=== PATIENT | male | born 1950 | race Caucasian/White ===

== ENCOUNTER 2020-03-05 10:26 | Outpatient (REF) | payer MEDICARE, SELFPAY ==
[2020-03-05 11:24] LABS: MANUAL DIFF FLAG NO
[2020-03-05 11:33] LABS: Estimated Average Glucose 163 mg/dL; Hemoglobin A1c % 7.3 %
[2020-03-05 11:34] LABS: Basophils Absolute Auto 0.1 X10*3/uL (0.0-0.2); Basophils Percent Auto 0.9 % (0-2); Eosinophils Absolute Auto 0.2 X10*3/uL (0.0-0.4); Eosinophils Percent Auto 2.4 % (0-4); Hematocrit 46.1 % (42-52); Hemoglobin 15.7 g/dl (14.0-18.0); Imm Gran Abs Auto 0.02 X10*3/uL (0.00-0.03); Imm Gran Pct Auto 0.3 % (0.0-0.4); Lymphocytes Percent Auto 39.2 % (20-40); Mean Corpuscular HGB Conc 34.1 g/dl (31.0-36.0); Mean Corpuscular Hemoglobin 31.4 pg (27.0-33.0); Mean Corpuscular Volume 92.2 fL (80-98); Mean Platelet Volume 9.7 fL (9.4-12.4); Monocytes Absolute Auto 0.6 X10*3/uL (0.1-1.2); Monocytes Percent Auto 7.8 % (2-11); Neutrophils Absolute Auto 3.8 X10*3/uL (2.0-8.3); Neutrophils Percent Auto 49.4 % (45-73); Platelet Count 345 X10*3/uL (160-400); Red Cell Distribution Width 12.6 % (11.0-16.0); White Blood Count 7.6 X10*3/uL (4.8-10.8)
[2020-03-05 12:15] LABS: Alanine Aminotransferase 21 U/L (0-40); Albumin Level 4.6 g/dL (3.5-5.0); Alkaline Phosphatase 88 U/L (39-117); Anion Gap 18 (12-20); Aspartate Amino Transferase 16 U/L (5-37); Bilirubin Total 0.8 mg/dL (0.0-1.0); Blood Urea Nitrogen 17 mg/dL (9-16); Calcium 9.6 mg/dL (8.4-10.2); Carbon Dioxide 21 mmol/L (22-29); Chloride 103 mmol/L (96-108); Cholesterol 167 mg/dL; Estimated Glomerular Filt Rate > 60; Glucose Fasting 157 mg/dL (60-99); HDL Cholesterol 36 mg/dL; LDL Cholesterol Calculated 107 mg/dl; Sodium 138 mmol/L (135-145); Triglycerides 124 mg/dL
[2020-03-05 12:52] LABS: Prostate Specific Antigen 4.13 ng/mL (<0.05-4.0); Thyroid Stimulating Hormone 0.91 uIU/mL (0.32-4.0)
[2020-03-05 14:11] LABS: Glucose Urine UA >=1000 MG/DL (NEG); Leukocyte Esterase Urine NEG (NEG); Nitrite Urine NEG (NEG); PH 5.5 (5.0-8.0); Urine Blood NEG (NEG); Urine Ketones NEG (NEG); Urine Protein NEG (NEG-TRACE)
[2020-03-05 14:13] LABS: Appearance Urine CLEAR; Color Urine YELLOW
[2020-03-05 14:27] LABS: RBC Urine 0-2 /HPF (0); Squamous Epithelial Cell Urine TRACE /LPF; WBC Urine 0-2 /HPF (0-4)
[2020-03-05 14:45] LABS: Creatinine Urine 79.78 mg/dL; Microalbum/Creatinine Ratio Ur 7.5 ug/mg cr
== END 2020-03-05 10:27 | disposition home or self-care (01) ==
LOC: HO.HMGCLDS 10:26
PROVIDERS: PCP Internal Medicine; Visit Provider Internal Medicine
DX: I25.10 Atherosclerotic heart disease of native coronary artery without angina pectoris (principal); E11.9 Type 2 diabetes mellitus without complications; E78.00 Pure hypercholesterolemia, unspecified
CPT/HCPCS: 36415; 80053; 80061; 81001; 82043; 82306; 83036; 84153; 84443; 85025

== ENCOUNTER 2020-06-05 09:21 | Outpatient (REF) | payer MEDICARE, SELFPAY ==
[2020-06-05 11:31] LABS: Estimated Average Glucose 157 mg/dL; Hemoglobin A1c % 7.1 %
[2020-06-05 11:40] LABS: Alanine Aminotransferase 21 U/L (0-40); Albumin Level 4.6 g/dL (3.5-5.0); Alkaline Phosphatase 84 U/L (39-117); Anion Gap 16 (12-20); Aspartate Amino Transferase 16 U/L (5-37); Bilirubin Total 0.6 mg/dL (0.0-1.0); Blood Urea Nitrogen 17 mg/dL (9-16); Calcium 9.7 mg/dL (8.4-10.2); Carbon Dioxide 27 mmol/L (22-29); Chloride 103 mmol/L (96-108); Cholesterol 153 mg/dL; Estimated Glomerular Filt Rate > 60; Glucose Fasting 132 mg/dL (60-99); HDL Cholesterol 39 mg/dL; LDL Cholesterol Calculated 85 mg/dl; Potassium 4.6 mmol/L (3.3-5.1); Sodium 141 mmol/L (135-145); Total Protein 7.1 g/dL (6.5-8.0); Triglycerides 149 mg/dL
== END 2020-06-05 09:22 | disposition home or self-care (01) ==
LOC: HO.HMGCLDS 09:21
PROVIDERS: PCP Internal Medicine; Visit Provider Internal Medicine
DX: Z00.00 Encounter for general adult medical examination without abnormal findings (principal); E11.9 Type 2 diabetes mellitus without complications; I25.10 Atherosclerotic heart disease of native coronary artery without angina pectoris; E78.00 Pure hypercholesterolemia, unspecified; R97.20 Elevated prostate specific antigen [PSA]; Z12.5 Encounter for screening for malignant neoplasm of prostate
CPT/HCPCS: 36415; 80053; 80061; 83036; 84153

== ENCOUNTER 2021-11-25 08:59 | Outpatient (REF) | payer MEDICARE, SELFPAY ==
[2021-11-25 11:21] LABS: Appearance Urine CLEAR; Color Urine YELLOW; Glucose Urine UA >=1000 MG/DL (NEG); Leukocyte Esterase Urine NEG (NEG); Nitrite Urine NEG (NEG); Specific Gravity - Urine <= 1.005 (1.005-1.025); Urine Blood NEG (NEG); Urine Ketones NEG (NEG); Urine Protein NEG (NEG-TRACE)
[2021-11-25 11:24] LABS: MANUAL DIFF FLAG NO
[2021-11-25 11:41] LABS: Estimated Average Glucose 163 mg/dL; Hemoglobin A1c % 7.3 %
[2021-11-25 11:45] LABS: Basophils Absolute Auto 0.1 X10*3/uL (0.0-0.2); Basophils Percent Auto 1.1 % (0-2); Eosinophils Absolute Auto 0.2 X10*3/uL (0.0-0.4); Eosinophils Percent Auto 2.8 % (0-4); Hematocrit 45.6 % (42.0-52.0); Hemoglobin 15.4 g/dl (14.0-18.0); Imm Gran Abs Auto 0.01 X10*3/uL (0.00-0.03); Imm Gran Pct Auto 0.1 % (0.0-0.4); Lymphocytes Absolute Auto 3.7 X10*3/uL (1.2-4.9); Lymphocytes Percent Auto 45.3 % (20-40); Mean Corpuscular HGB Conc 33.8 g/dl (31.0-36.0); Mean Corpuscular Hemoglobin 31.2 pg (27.0-33.0); Mean Corpuscular Volume 92.5 fL (80.0-98.0); Mean Platelet Volume 9.8 fL (9.4-12.4); Monocytes Absolute Auto 0.7 X10*3/uL (0.1-1.2); Monocytes Percent Auto 8.5 % (2-11); Neutrophils Absolute Auto 3.4 x10*3/uL (2.0-8.3); Neutrophils Percent Auto 42.2 % (45-73); Platelet Count 319 X10*3/uL (160-400); Red Blood Count 4.93 X10*6/uL (4.60-5.80); White Blood Count 8.1 X10*3/uL (4.8-10.8)
[2021-11-25 11:46] LABS: RBC Urine 0 /HPF (0); WBC Urine 0 /HPF (0-4)
[2021-11-25 12:11] LABS: PSA,Total (Free>4and<10) 3.56 ng/mL (0.00-4.00); Thyroid Stimulating Hormone 1.48 uIU/mL (0.32-4.0); Vitamin D 25-OH Total 36.3 ng/mL (>30)
[2021-11-25 12:19] LABS: Alanine Aminotransferase 18 U/L (0-40); Albumin Level 4.5 g/dL (3.5-5.0); Alkaline Phosphatase 82 U/L (39-117); Anion Gap 17 (12-20); Aspartate Amino Transferase 14 U/L (5-37); Bilirubin Total 0.7 mg/dL (0.0-1.0); Blood Urea Nitrogen 15 mg/dL (9-16); Calcium 9.8 mg/dL (8.4-10.2); Carbon Dioxide 23 mmol/L (22-29); Chloride 105 mmol/L (96-108); Cholesterol 166 mg/dL; Estimated Glomerular Filt Rate 60; Glucose Fasting 165 mg/dL (60-99); HDL Cholesterol 40 mg/dL; LDL Cholesterol Calculated 104 mg/dl; Sodium 141 mmol/L (135-145); Total Protein 6.8 g/dL (6.5-8.0); Triglycerides 112 mg/dL
[2021-11-25 12:20] LABS: Creatinine Urine 71.55 mg/dL; Microalbum/Creatinine Ratio Ur 6.9 ug/mg cr
== END 2021-11-25 09:00 | disposition home or self-care (01) ==
LOC: HO.HMGCLDS 08:59
PROVIDERS: PCP Internal Medicine; Visit Provider Internal Medicine
DX: Z12.5 Encounter for screening for malignant neoplasm of prostate (principal); E11.9 Type 2 diabetes mellitus without complications; I25.10 Atherosclerotic heart disease of native coronary artery without angina pectoris; E78.00 Pure hypercholesterolemia, unspecified
CPT/HCPCS: 36415; 80053; 80061; 81001; 82043; 82306; 83036; 84153; 84443; 85025

== ENCOUNTER 2022-02-19 09:34 | Outpatient (REF) | payer MEDICARE, SELFPAY ==
[2022-02-19 11:34] LABS: Estimated Average Glucose 160 mg/dL; Hemoglobin A1c % 7.2 %
[2022-02-19 11:40] LABS: Alanine Aminotransferase 23 U/L (0-40); Albumin Level 4.5 g/dL (3.5-5.0); Alkaline Phosphatase 89 U/L (39-117); Anion Gap 18 (12-20); Aspartate Amino Transferase 17 U/L (5-37); Bilirubin Total 0.6 mg/dL (0.0-1.0); Blood Urea Nitrogen 13 mg/dL (9-16); Carbon Dioxide 25 mmol/L (22-29); Chloride 103 mmol/L (96-108); Cholesterol 130 mg/dL; Estimated Glomerular Filt Rate 59; Glucose Fasting 168 mg/dL (60-99); HDL Cholesterol 39 mg/dL; LDL Cholesterol Calculated 72 mg/dl; Potassium 4.5 mmol/L (3.3-5.1); Sodium 141 mmol/L (135-145); Total Protein 6.8 g/dL (6.5-8.0); Triglycerides 97 mg/dL
== END 2022-02-19 09:35 | disposition home or self-care (01) ==
LOC: HO.HMGCLDS 09:34
PROVIDERS: PCP Internal Medicine; Visit Provider Internal Medicine
DX: E11.9 Type 2 diabetes mellitus without complications (principal); E78.00 Pure hypercholesterolemia, unspecified
CPT/HCPCS: 36415; 80053; 80061; 83036

== ENCOUNTER 2023-02-03 08:35 | Outpatient (REF) | payer MEDICARE, SELFPAY | END 2023-02-03 08:36 | disposition home or self-care (01) | LOC: HO.HMGCLDS 08:35 | PROVIDERS: PCP Internal Medicine; Visit Provider Internal Medicine | DX: E11.9 Type 2 diabetes mellitus without complications (principal); I25.10 Atherosclerotic heart disease of native coronary artery without angina pectoris; E78.00 Pure hypercholesterolemia, unspecified | CPT/HCPCS: 36415; 80053; 80061; 83036; 85025 ==

== ENCOUNTER 2024-02-01 09:26 | Outpatient (REF) | payer MEDICARE, SELFPAY ==
[2024-02-01 09:56] LABS: MANUAL DIFF FLAG NO
[2024-02-01 10:14] LABS: Basophils Absolute Auto 0.1 X10*3/uL (0.0-0.2); Basophils Percent Auto 1.1 % (0-2); Eosinophils Absolute Auto 0.2 X10*3/uL (0.0-0.4); Eosinophils Percent Auto 2.4 % (0-4); Hemoglobin 15.8 g/dl (14.0-18.0); Imm Gran Abs Auto 0.03 X10*3/uL (0.00-0.03); Imm Gran Pct Auto 0.3 % (0.0-0.4); Lymphocytes Absolute Auto 3.5 X10*3/uL (1.2-4.9); Lymphocytes Percent Auto 36.8 % (20-40); Mean Corpuscular HGB Conc 34.3 g/dl (31.0-36.0); Mean Corpuscular Hemoglobin 31.9 pg (27.0-33.0); Mean Corpuscular Volume 92.7 fL (80.0-98.0); Monocytes Absolute Auto 0.9 X10*3/uL (0.1-1.2); Monocytes Percent Auto 9.1 % (2-11); Neutrophils Absolute Auto 4.8 x10*3/uL (2.0-8.3); Neutrophils Percent Auto 50.3 % (45-73); Platelet Count 322 X10*3/uL (160-400); Red Blood Count 4.96 X10*6/uL (4.60-5.80); Red Cell Distribution Width 12.9 % (11.0-16.0); White Blood Count 9.5 X10*3/uL (4.8-10.8)
[2024-02-01 10:52] LABS: Estimated Average Glucose 171 mg/dL; Hemoglobin A1C 234.9356 umol/L; Hemoglobin A1c % 7.6 % (<6.0); Total Hemoglobin (HGBA1C) 3964.1156 umol/L
[2024-02-01 10:55] LABS: Alanine Aminotransferase 24 U/L (0-40); Albumin Level 4.5 g/dL (3.5-5.0); Alkaline Phosphatase 84 U/L (39-117); Anion Gap 14 (12-20); Aspartate Amino Transferase 16 U/L (5-37); Bilirubin Total 0.7 mg/dL (0.0-1.0); Blood Urea Nitrogen 15 mg/dL (9-16); Calcium 9.9 mg/dL (8.4-10.2); Carbon Dioxide 26 mmol/L (22-29); Chloride 105 mmol/L (96-108); Cholesterol 122 mg/dL (<200); Estimated Glomerular Filt Rate > 60; Glucose Fasting 146 mg/dL (60-99); HDL Cholesterol 42 mg/dL (>40); LDL Cholesterol Calculated 65 mg/dL (<100); Potassium 4.3 mmol/L (3.3-5.1); Sodium 141 mmol/L (135-145); Total Protein 7.1 g/dL (6.5-8.0); Triglycerides 78 mg/dL (<150)
[2024-02-01 11:13] LABS: PSA,Total (Free>4and<10) 4.58 ng/mL (0.00-4.00)
[2024-02-01 11:15] LABS: Thyroid Stimulating Hormone 1.14 uIU/mL (0.32-4.0); Vitamin D 25-OH Total 44.8 ng/mL (>30)
[2024-02-01 11:23] LABS: Microalbum/Creatinine Ratio Ur 22.4 ug/mg cr (<30)
[2024-02-02 11:18] LABS: Free Prostate Spec Ag 0.9 ng/mL; Percent Free Prostate Spec Ag 20 % (calc) (>25); Prostate Specific Ag Total 4.6 ng/mL (< OR = 4.0)
== END 2024-02-01 09:27 | disposition home or self-care (01) ==
LOC: HO.LAB 09:26
PROVIDERS: PCP Internal Medicine; Visit Provider Internal Medicine
DX: Z00.00 Encounter for general adult medical examination without abnormal findings (principal); I25.10 Atherosclerotic heart disease of native coronary artery without angina pectoris; E78.00 Pure hypercholesterolemia, unspecified; E66.09 Other obesity due to excess calories; Z12.5 Encounter for screening for malignant neoplasm of prostate; Z13.1 Encounter for screening for diabetes mellitus
CPT/HCPCS: 36415; 80053; 80061; 82043; 82306; 82570; 83036; 84153; 84154; 84443; 85025

== ENCOUNTER 2024-06-20 12:55 | Outpatient (AMB) | payer MEDICARE, SELFPAY ==
--- NOTE | 2024-06-20 13:02 | MHC.PC.OV ---
Vital Signs 06/20/24 13:17 Height 5 ft 4.75 in Weight 187 lb BMI 31.4 BP 102/52 L Blood Pressure Location Rt brachial Pulse 87 Pulse Source Pulse Oximeter Temp 97.2 F Pulse Oximetry (%) 97 Intake Visit Reasons: follow up Intake Note: no other issues Allergies No Known Allergies [No Known Allergies*] Allergy (Verified 06/20/24 13:37) Medication List - Last Reconciled 06/20/24 by Sally Smith PA-C aspirin (Adult Aspirin Regimen) 81 mg PO DAILY atorvastatin 80 mg PO DAILY blood sugar diagnostic (FreeStyle Test strips) As directed dapagliflozin propanediol (Farxiga) 10 mg PO DAILY dulaglutide (Trulicity) 1.5 mg subcut QWEEK glipizide 5 mg PO DAILY lisinopril 5 mg PO DAILY metformin ER 750 mg PO DAILY metoprolol tartrate 50 mg PO BID [facility] Medical History (Updated 06/20/24 @ 13:45 by Sally Smith PA-C) Obesity (BMI 30.0-34.9) Elevated PSA Diabetes type 2 Mild hypercholesterolemia History of myocardial infarction Coronary artery disease Surgical History History of colonoscopy (~02/03/19) Physical exam (Primary Care) Vital Signs: Last Vital Signs Temp 97.2 F 06/20/24 13:17 Pulse 87 06/20/24 13:17 BP 102/52 L 06/20/24 13:17 Pulse Ox 97 06/20/24 13:17 Care Plan Goal for BP management: 130/80 BMI result Body Mass Index 31.4 BMI Assessment/Plan discussion: High BMI High, discussed plan: lifestyle, weight reduction, dietary, physical activity and alcohol moderation Coding Level of Care Code New Pt Level 4 (60015) Complex EM visit Add On G2211 Diagnoses Mild hypercholesterolemia E78.00 Coronary artery disease I25.10 Diabetes type 2 E11.9 Elevated PSA R97.20 Obesity (BMI 30.0-34.9) E66.811 Assessment & Plan Assessment & Plan (1) Mild hypercholesterolemia: Code(s): E78.00 - Pure hypercholesterolemia, unspecified Category: Medical Plan: Patient to continue atorvastatin 80 mg daily. LDL goal <70. Last LDL was on 02/01/2024 which was 65. At goal. Condition is chronic and stable continue current regimen. (2) Coronary artery disease: Code(s): I25.10 - Atherosclerotic heart disease of [place] coronary artery without angina pectoris Category: Medical Plan: Patient is currently on baby aspirin 81 mg daily, atorvastatin 81 mg daily, lisinopril 5 mg daily, metoprolol 50 mg p.o. b.i.d.. Blood pressure goal 130/80. Condition is chronic consider will continue to monitor.. (3) Diabetes type 2: Code(s): E11.9 - Type 2 diabetes mellitus without complications Category: Medical Plan: A1c level Goal <7.0. Last A1c was 7.6 on 02/01/2024. Patient reports that he is currently being seen by Laureano Niño PA-C at [facility] although is requesting for us to take over his diabetes care due to the travel to [facility] makes it difficult for the patient he reports. Will reassess labs including A1c and urine. Patient to continue Farxiga 10 mg daily, glipizide 5 mg daily, metformin extended release 750 mg daily, Trulicity 1.5 mg subQ weekly. Condition is chronic and stable continue to monitor. (4) Elevated PSA: Code(s): R97.20 - Elevated prostate specific antigen [PSA] Category: Medical Plan: Patient's PSA was elevated on 03/05/2020 and again on 02/01/2024. Patient reports that he was not referred to Urology due to he was dealing with his 's comorbidities. Although at this time he is agreeable to being seen by Urology. Will place referral to Urology at this time. Condition is chronic and stable continue to monitor. (5) Obesity (BMI 30.0-34.9): Code(s): E66.811 - Obesity, class 1 Category: Medical Plan: Patient to improve diet and exercise regimen. Condition is chronic and stable continue to monitor. Plan Plan - Refer patient to urology for further evaluation of elevated PSA and potential screening for prostate cancer. - Recommend fasting blood work including CBC, CMP, CRP, Hemoglobin A1c, urine analysis, magnesium levels, liver enzyme panel, lipid profile, repeat PSA, TSH, vitamin B1, , folate, and vitamin D levels to be performed prior to the next follow-up. - Transition management of Type 2 Diabetes Mellitus to primary care with Dr. Jason for patient convenience. - Continue current medications: Atorvastatin, Farxiga, Trulicity, Glipizide, Lisinopril, Metformin, and Metoprolol. - Review blood pressure medication if hypotension symptoms occur given current readings. - Request re-evaluation of cholesterol and a1c levels during next visit. - Prescribe freestyle glucose test strips for home blood glucose monitoring. - Schedule next follow-up appointment in six months, with anticipation of lab results review prior. Orders: Orders Complete Blood Count Auto Diff Today Z00.00 - Encounter for general adult medical examination without abnormal findings Comprehensive [place]. Panel Fast Today Z00.00 - Encounter for general adult medical examination without abnormal findings Hemoglobin A1c Today Z00.00 - Encounter for general adult medical examination without abnormal findings Liver Panel Today Z00.00 - Encounter for general adult medical examination without abnormal findings Lipid Panel Today Z00.00 - Encounter for general adult medical examination without abnormal findings PSA,Total (Free>4and<10) Today Z00.00 - Encounter for general adult medical examination without abnormal findings C Reactive Protein Today Z00.00 - Encounter for general adult medical examination without abnormal findings Microalbumin, Random (w Creat) Today E11.9 - Type 2 diabetes mellitus without complications Magnesium Today Z00.00 - Encounter for general adult medical examination without abnormal findings TSH reflex Free T4 Today Z00.00 - Encounter for general adult medical examination without abnormal findings Vitamin B1 Today Z00.00 - Encounter for general adult medical examination without abnormal findings Vitamin B12 and Folate Today Z00.00 - Encounter for general adult medical examination without abnormal findings Vitamin D 25-OH Total Today Z00.00 - Encounter for general adult medical examination without abnormal findings Medications: New blood sugar diagnostic (FreeStyle Test strips) As directed 100 ea 3RF Patient Instructions: Patient Instructions - Arrange a urology appointment to evaluate the elevated PSA level. - Undergo fasting blood tests as ordered before the next appointment. - Continue current medications as prescribed. - Monitor your blood sugar at home using prescribed freestyle test strips. - Report any dizziness, chest pain, or abnormal symptoms promptly. - Maintain a heart-healthy diet and manage diabetes with regular check-ins. - Return to our clinic in six months for a follow-up or sooner if significant changes occur in symptoms or health status. Scribe Plan - Not visible on output: History of Present Illness The patient is a 73-year-old male presenting with concerns about managing his chronic medical conditions, particularly Type 2 Diabetes Mellitus, as well as addressing an elevated Prostate-Specific Antigen (PSA) level. The patient has Type 2 Diabetes Mellitus and recently had his Hemoglobin A1c recorded at 7.6%, suggesting an upward trend. He has a history of myocardial infarction in 1995, which led to a subsequent coronary artery bypass grafting. He has been managed on various medications including atorvastatin started post-myocardial infarction for hyperlipidemia, resulting in currently low cholesterol levels. His triglycerides are well controlled at 78 mg/dL, total cholesterol is at 122 mg/dL, LDL is at 65 mg/dL, and HDL is at 42 mg/dL. These values been achieved through diligent medication adherence and lifestyle adjustments. The PSA has been noted as elevated, and there is a need for reevaluation by urology to rule out prostate cancer, although he has not followed up with a urologist recently. The patient previously consulted Dr. Joe and Dr. Tubbs for diet management related to diabetes. Dr. Tubbs has retired, hence the discussion around transitioning the management back to primary care to improve convenience as the patient has found the travel requirements burdensome. His blood pressure noted to be 105/70 mmHg today is controlled, although it is lower than the usual value of 110 mmHg. Social History - , lives with , no children at home. - Reports not driving frequently due to discomfort with current driving conditions. - No reported substance use such as tobacco. - Manages own medications and minor household activities without assistance. - No formal home health aides or in-home health services. Review of Systems - Cardiovascular: Denies chest pain, denies leg swelling. - Gastrointestinal: Denies black or bloody stools. - Neurologic: Denies dizziness, denies memory difficulties. - Genitourinary: Reports normal urination. - Respiratory: Denies shortness of breath. Physical Exam Appearance: Alert. Oriented X3. No acute distress. Head: Normal external exam. Normocephalic. Atraumatic. Eyes: Pupils are equal, round, and reactive to light. Extraocular movements intact. Conjunctiva and sclera normal. Eyelids normal. Ears: External auditory canal normal. Tympanic membranes normal. Throat: Pharynx normal. Uvula midline. Moist mucous membranes. Neck: Normal inspection. Neck supple. Full range of motion. No adenopathy. Thyroid Normal. No meningeal signs. No neck mass noted. Cardiovascular: Normal heart rate and rhythm. Heart sound normal. No murmurs noted. Pulses normal throughout. Respiratory: No respiratory distress. Painless inspiration. Breath sounds normal. No wheezes/rales/rhonchi noted. Chest nontender. No accessory muscle usage noted or decreased air movement noted. Abdomen: Soft and nontender. Bowel sounds normal in all 4 quadrants. No distention noted. No organomegaly noted. No visible injury noted. Back: No costovertebral angle tenderness. Full range of motion noted. Skin: Skin warm and dry. Normal skin color. Normal skin turgor. No rashes/lesions/lacerations noted. Extremities: No lower extremity edema. Extremities exhibit normal range of motion. Extremities nontender. Neuro: Oriented X 3. No motor deficit. No sensory deficit. Reflexes normal. Results - Labs: Hemoglobin A1c 7.6%, Triglycerides 78 mg/dL, Cholesterol 122 mg/dL, LDL 65 mg/dL, HDL 42 mg/dL. - PSA: Elevated (exact value above 4 ng/mL not specified). Plan - Refer patient to urology for further evaluation of elevated PSA and potential screening for prostate cancer. - Recommend fasting blood work including CBC, CMP, CRP, Hemoglobin A1c, urine analysis, magnesium levels, liver enzyme panel, lipid profile, repeat PSA, TSH, vitamin B1, , folate, and vitamin D levels to be performed prior to the next follow-up. - Transition management of Type 2 Diabetes Mellitus to primary care with Dr. Perez for patient convenience. - Continue current medications: Atorvastatin, Farxiga, Trulicity, Glipizide, Lisinopril, Metformin, and Metoprolol. - Review blood pressure medication if hypotension symptoms occur given current readings. - Request re-evaluation of cholesterol levels during next visit. - Prescribe freestyle glucose test strips for home blood glucose monitoring. - Schedule next follow-up appointment in six months, with anticipation of lab results review prior. Patient was informed and verbally consented to the use of an ambient scribe for clinic note documentation during this visit. Discussion Notes During the visit, I discussed at length the importance of managing his Type 2 Diabetes Mellitus, coronary artery disease, and hyperlipidemia. Considering the longstanding history of Type 2 Diabetes Mellitus and recent A1c levels, it was agreed that transitioning care to a more local resource would aid in better diabetes management. We reviewed the elevated PSA, and I stressed the necessity of a follow-up with urology to rule out prostate malignancy. Laboratory evaluation and blood work were organized to occur in advance of the next visit at the six-month interval. I provided reassurance regarding his current cardiovascular status, noting favorable cholesterol levels and stable blood pressure, although we will monitor the latter closely. The patient is now prescribed the recommended glucose test strips to ensure continuous monitoring at home. I affirmed the plan for continued primary care management cultivation, led by myself and Dr. Perez, to optimize his healthcare journey. I ensured the patient understood the importance of follow-up should any symptoms or abnormities arise prior to his scheduled appointment. Patient Instructions - Arrange a urology appointment to evaluate the elevated PSA level. - Undergo fasting blood tests as ordered before the next appointment. - Continue current medications as prescribed. - Monitor your blood sugar at home using prescribed freestyle test strips. - Report any dizziness, chest pain, or abnormal symptoms promptly. - Maintain a heart-healthy diet and manage diabetes with regular check-ins. - Return to our clinic in six months for a follow-up or sooner if significant changes occur in symptoms or health status.
[2024-06-20 13:17] VITALS: BP 102/52; PULSE 87; TEMP 36.2; O2SAT 97; BMI 31.4
--- OUTSIDE RECORDS SUMMARY | 2024-06-20 15:44 | XMS_ITS | Continuity of Care Document ---
Author Organization [facility] [address] [place] [address] Phone [phone] Care Team Providers Care Discharge Rn Name Role Phone Jose Joe M.D. Care Team Information Recei hallie [phone] Problems Active Problems Provider Date Type 2 diabetes mellitus Handy Theodore M.D. O nset: 12/01/2021 Asymptomatic coronary heart disease Handy montanez M.D. Onset: 12/01/2021 Essential hypertension Handy Theodore M.D. Ons et: 10/12/2022 Hypercholesterolemia Handy Theodore M.D. Onset : 10/12/2022 Social History Type Date Description Comments Sex Unknown Lives With Spouse ETOH Use Rarely consumes alcohol Tobacco Use Start: Unknown End: Unknown Patient is a former smoker Quit 1995 Smoking Status Reviewed: 02/04/24 Patient is a former smoker Quit 1995 Allergies and adverse reactions Description No Known Drug Allergies Medications Active Medications SIG Qnty Indications Order ing Provider Date Trulicity1.5mg/0.5M L Solution Auto-Inject Inject 1 Syringe Subcutaneously (1.5MG) Every Week as Directed. 6units E11.9 Ara Carolina M.D. 02/04/2024 Trulicity0.75mg/0.5 ML Solution Pen-Inject Inject 0.75 sc weekly 12ml E11.9 Handy Theodore M.D. 08/20/2023 Glipizide ER5mg Tablets ER 24HR one a day for sugarin am 90tabs Handy Theodore M.D. 08/20/2023 Metformin HCL [id number] Tablets ER 24HR 1 by mouth Am Handy Theodore M.D. 10/12/2022 Xcrhl87ht Tablets 1 by mouth every day 90tabs Handy Theodore M.D. 10/12/2022 Iwejbjj48qc Tablets Take One Tablet By Mouth Every Day 90tabs Ara Carolina M.D. 05/08/2022 Uqxlanieqy9cp Tablets 1 by mouth every day Handy Theodore M.D. 12/01/2021 Metoprolol Dwbsnbca28me Tablets 2 tab by mouth twice a day Handy Theodore M.D. 12/01/2021 Aspirin Adult Low Zoeo63xz Tablets DR 1 by mouth every day Handy Theodore M.D. 12/01/2021 Atorvastatin Uxcsffs66jz Tablets 1 by mouth every day Handy Theodore M.D. 12/01/2021 Vital Signs Date Vital Result Comment 02/04/2024 11:04am BP Systolic 120 mmHg BP Diastolic 70 mmHg Heart Rate 92 /min Height 66 inches 5'6 Weight 191.12 lb BMI (Body Mass Index) 30.8 kg/m2 Results Test Acquired Date Facility Test Result H/L [place] Laboratory test finding 02/04/2024 Inhouse Glucose Fingerstick 213 Laboratory test finding 08/20/2023 Inhouse Glucose Fingerstick 186 Hemoglobin A1c 7.7% Laboratory test finding 01/14/2023 Inhouse Glucose Fingerstick 116 Hemoglobin A1c 7.5% Laboratory test finding 10/12/2022 Inhouse Glucose Fingerstick 194 Hemoglobin A1c 8.5% Medical Devices Description No Information Available Encounters Type Date Location Provider Dx Diagnosis Office Visit 02/04/2024 10:45a Main Office ANANTH Pete E11.9 Type 2 diabet es mellitus without complications E78.00 Pure hypercholestero lemia, unspecified I10 Essential (primary) hypertension I25.89 Other forms of chron ic ischemic heart disease Assessments Date Code Description Provider 02/04/2024 E11.9 Type 2 diabetes mellitus wit hout complications ANANTH Pete 02/04/2024 E78.00 Hypercholesterolemia ANANTH Pete 02/04/2024 I10 Essential hypertension ANANTH Cordero 02/04/2024 I25.89 Asymptomatic coronary heart disease ANANTH Pete Plan of Treatment 08/20/2023 - Handy Theodore M.D.* E11.9 Type 2 diabetes mellitus without complications * I10 Essential hypertension * E78.00 Hypercholesterolemia * I25.89 Asymptomatic coronary heart disease* New Medication:* Trulicity 0.75 mg/0.5ML Functional Status Description No Information Available Mental Status Description No Information Available Referrals Description No Information Available
--- OUTSIDE RECORDS SUMMARY | 2024-06-20 15:44 | XMS_ITS ---
[facility] [address] [place], [place] [id number] Care Team Providers Care Chute Builder Name Role Phone Jose Joe Primary Care Provider [phone] REASON FOR VISIT Message to self Encounters Encounter Location Date Provider Diagnosis Jose Joe DO, [address] [id number] 03/19/2024 Jose Joe PLAN OF TREATMENT No Information
--- OUTSIDE RECORDS SUMMARY | 2024-06-20 15:44 | XMS_ITS ---
Author Organization Jose Joe DO [facility] Address [address] [place], [place] [id number] Care Team Providers Care Sawmilling Operator Name Role Phone TatyanaJose camarillo Primary Care Provider REASON FOR VISIT New Refill Request MEDICATIONS Medication SIG (Take, Route, Frequency, Duration) Notes Start Date End Date Status FreeStyle Test - Use as directed In V itro Once a day for 90 days DM II E11.9 04/14/2018 Active FreeStyle Lancets - Use as directed fing er stick Once a day for 90 days DM II E11.9 05/04/2016 Active Encounters Encounter Location Date Provider Diagnosis Jose Joe DO, [address] [phone] 03/30/2024 Jose Joe Type 2 diabetes mellitus without complications E11.9 ASSESSMENTS Encounter Date Diagnosis Assessment Notes Treatment Notes Treatment Clinical Notes 03/30/2024 Type 2 diabetes mellitus without complications (ICD-10 - E11.9) PLAN OF TREATMENT Medication Medication Name Sig Start Date Stop Date Notes FreeStyle Test - Use as directed In V itro Once a day for 90 days 04/14/2018 DM II E11.9 FreeStyle Lancets - Use as directed fing er stick Once a day for 90 days 05/04/2016 DM II E11.9
--- OUTSIDE RECORDS SUMMARY | 2024-06-20 15:44 | XMS_ITS ---
Author Organization Jose Joe DO, FACP Address [address] [place], [place] [phone] Care Team Providers Care Sql Report Developer Name Role Phone Jose Joe Primary Care Provider REASON FOR VISIT 6 month f/u Encounters Encounter Location Date Provider Diagnosis JO Huertas DO[address] [id number] 05/17/2024 Jose Joe PLAN OF TREATMENT No Information
== END 2024-06-20 13:40 | disposition home or self-care (01) ==
LOC: HO.HMCSH 12:55
PROVIDERS: PCP Internal Medicine; Visit Provider Physician Assistant Medical
DX: E78.00 Pure hypercholesterolemia, unspecified (principal); I25.10 Atherosclerotic heart disease of native coronary artery without angina pectoris; E11.9 Type 2 diabetes mellitus without complications; R97.20 Elevated prostate specific antigen [PSA]; E66.811 Obesity, class 1

== ENCOUNTER → 2024-06-20 12:55 | Outpatient (BNVA) | payer MEDICARE, SELFPAY | PROVIDERS: PCP Internal Medicine; Visit Provider Physician Assistant Medical | DX: E78.00 Pure hypercholesterolemia, unspecified (principal); I25.10 Atherosclerotic heart disease of native coronary artery without angina pectoris; E11.9 Type 2 diabetes mellitus without complications; R97.20 Elevated prostate specific antigen [PSA]; E66.811 Obesity, class 1 | CPT/HCPCS: 99202 ==

== ENCOUNTER 2024-12-15 08:53 | Outpatient (REF) | payer MEDICARE, SELFPAY ==
[2024-12-15 10:10] LABS: MANUAL DIFF FLAG NO
[2024-12-15 10:17] LABS: Hematocrit 44.6 % (42.0-52.0); Hemoglobin 15.0 g/dl (14.0-18.0); Imm Gran Abs Auto 0.02 X10*3/uL (0.00-0.03); Imm Gran Pct Auto 0.2 % (0.0-0.4); Lymphocytes Absolute Auto 3.7 X10*3/uL (1.2-4.9); Mean Corpuscular HGB Conc 33.6 g/dl (31.0-36.0); Mean Corpuscular Hemoglobin 31.6 pg (27.0-33.0); Mean Corpuscular Volume 94.1 fL (80.0-98.0); NRBC Abs Auto 0.000 X10*3/uL (0.0-0.012); NRBC Pct Auto 0.0 /100WBC (0.0-0.2); Platelet Count 308 X10*3/uL (160-400); Red Blood Count 4.74 X10*6/uL (4.60-5.80); White Blood Count 8.3 X10*3/uL (4.8-10.8)
[2024-12-15 10:32] LABS: Hemoglobin A1C 235.6962 umol/L; Total Hemoglobin (HGBA1C) 3887.4062 umol/L
[2024-12-15 11:09] LABS: Alanine Aminotransferase 29 U/L (0-40); Albumin Level 4.5 g/dL (3.5-5.0); Alkaline Phosphatase 86 U/L (39-117); Anion Gap 15 (12-20); Aspartate Amino Transferase 25 U/L (5-37); Blood Urea Nitrogen 18 mg/dL (9-16); Calcium 9.6 mg/dL (8.4-10.2); Carbon Dioxide 23 mmol/L (22-29); Chloride 106 mmol/L (96-108); Cholesterol 133 mg/dL (<200); Estimated Glomerular Filt Rate > 60; HDL Cholesterol 38 mg/dL (>40); Magnesium 2.1 mg/dL (1.6-2.6); Potassium 4.0 mmol/L (3.3-5.1); Sodium 140 mmol/L (135-145); Total Protein 6.8 g/dL (6.5-8.0); Triglycerides 123 mg/dL (<150)
[2024-12-15 11:18] LABS: PSA,Total (Free>4and<10) 5.17 ng/mL (0.00-4.00)
[2024-12-15 11:26] LABS: Microalbum/Creatinine Ratio Ur 12.4 ug/mg cr (<30)
[2024-12-15 11:43] LABS: Folate 10.9 ng/mL (> or = 4.0); Vitamin B12 299 pg/mL (200-900)
[2024-12-18 12:59] LABS: Free Prostate Spec Ag 0.8 ng/mL; Percent Free Prostate Spec Ag 20 % (calc) (>25)
== END 2024-12-15 08:54 | disposition home or self-care (01) ==
LOC: HO.HMGCLDS 08:53
PROVIDERS: PCP Internal Medicine; Visit Provider Physician Assistant Medical
DX: Z00.00 Encounter for general adult medical examination without abnormal findings (principal); E11.9 Type 2 diabetes mellitus without complications; Z12.5 Encounter for screening for malignant neoplasm of prostate
CPT/HCPCS: 36415; 80053; 80061; 80076; 82043; 82248; 82306; 82570; 82607; 82746; 83036; 83735; 84153; 84154; 84425; 84443; 85025; 86140

== ENCOUNTER 2024-12-19 13:05 | Outpatient (AMB) | payer MEDICARE, SELFPAY ==
--- NOTE | 2024-12-19 13:01 | A.OFFPC_ITS ---
Vital Signs 12/19/24 13:02 Height 5 ft 4.75 in Weight 189 lb 4 oz BMI 31.7 BP 110/62 Blood Pressure Location Rt femoral Position Sitting Respiration 16 Pulse 87 Pulse Source Pulse Oximeter Temp 97.3 F Temp Source Temporal Artery Scan Pulse Oximetry (%) 97 Oxygen Delivery Method Room Air Intake Visit Reasons: 6 month f/u Intake Note: no other issues Heavy Coil Winder Required: No Accompanied by: Self / Same As Patient Allergies No Known Allergies (No Known Allergies*) Allergy (Verified 12/19/24 13:28) Medication List - Last Reconciled 12/19/24 by Sally Smith PA-C aspirin (Adult Aspirin Regimen) 81 mg PO DAILY atorvastatin 80 mg PO DAILY blood sugar diagnostic (FreeStyle Test strips) As directed blood sugar diagnostic (FreeStyle Test strips) As directed cholecalciferol (vitamin D3) 25 mcg PO DAILY dapagliflozin propanediol (Farxiga) 10 mg PO DAILY dulaglutide (Trulicity) 1.5 mg (0.5 mL) subcut QWEEK 90 days ezetimibe 10 mg PO DAILY glipizide ER 5 mg PO QAM lancets (FreeStyle Lancets) As directed lisinopril 5 mg PO DAILY metformin ER 750 mg PO DAILY metoprolol tartrate 50 mg PO BID 90 days Tobacco use date assessed: 12/19/24 Fall risk assessment: No Falls in past year Last assessed Fall Risk: 12/19/24 Dental Screening Dental Screen Date: 12/19/24 Did you have a dental visit in the last 12 months?: Yes Did you have a dental problem in the last 6 months where you did not have access to dental care?: No Was dental information given to patient?: Patient has dentist HPI 6 month f/u HPI Details The patient is a 74-year-old male presenting for a six-month follow-up visit. The patient has a history of coronary artery disease, having experienced a myocardial infarction in 1995. He reports experiencing dyspnea on exertion, which has been consistent since the heart attack, but denies any worsening of symptoms or peripheral edema. The patient is diagnosed with type 2 diabetes mellitus, managed with medications including Trulicity, metformin, and glipizide. Recent laboratory results indicate a hemoglobin A1c of 7.7%, slightly increased from 7.6% previously. He experiences gastrointestinal side effects from metformin, which have been managed by switching to the extended-release formulation. The patient has hyperlipidemia, treated with atorvastatin and Zetia. His recent lipid panel shows controlled LDL cholesterol levels, though HDL cholesterol remains slightly low. The patient has an elevated PSA level and is in the process of coordinating follow-up with urology. He has not yet seen a urologist but has been advised to follow up due to the persistently elevated levels since last year. For preventative care, the patient underwent a colonoscopy in 2019, with normal results. He is considering whether to have another in 2028, as it may be his last due to age guidelines. Social History - Housing: [facility] with [facility] Medical History Obesity (BMI 30.0-34.9) Elevated PSA Diabetes type 2 Mild hypercholesterolemia History of myocardial infarction Coronary artery disease Surgical History History of colonoscopy (~02/03/19) Family History Father Emphysema lung Mother High blood pressure Social History Housing: House Alcohol intake: current Alcohol intake frequency: does not drink Patient Tobacco Use Status: Former Tobacco user service: No Current occupational status: retired Cognitive needs: No Hearing needs: No Vision needs: Yes (rx glasses) Questionnaire PHQ-9 Over the last 2 weeks, how often have you been bothered by any of the following problems? 1. Little interest or pleasure in doing things: not at all 2. Feeling down, depressed, or hopeless: not at all 3. Trouble falling or staying asleep, or sleeping too much: not at all 4. Feeling tired or having little energy: not at all 5. Poor appetite or overeating: not at all 6. Feeling bad about yourself - or that you are a failure or have let yourself or your family down: not at all 7. Trouble concentrating on things, such as reading the newspaper or watching television: not at all 8. Moving or speaking so slowly that other people could have noticed. Or the opposite - being so fidgety or restless that you have been moving around a lot more than usual: not at all 9. Thoughts that you would be better off or of hurting yourself in some way: not at all Total score: 0 Depression Screening Interpretation: Negative Depression Screening Done: Yes 87556 - PHQ-9 Billing: Yes Source: Developed by Drs. Jose Torrez, Roslyn Beckham, Giovanni Barraza and colleagues, with an educational suraj from [employer] Thrive Questionnaire Date Thrive assessed: 12/19/24 I am a: Patient What is your living situation today?: I have a steady place to live Within the past 12 months, did the food you bought not last and you didn't have the money to get more?: Never true Within the past 12 months, did you worry whether your food would run out before you got money to buy more?: Never true Do you have trouble paying for medicines?: No Do you have trouble getting transportation to medical appointments?: No Do you have trouble paying your heating and electricity bill?: No Do you have trouble taking care of your child, family member or friend?: No Do you have trouble with day-to-day activities such as bathing, preparing meals, shopping, managing finances, etc.?: No Are you currently unemployed and looking for a job?: No Are you interested in more education?: No Please select the resources that you would like help with: None Currently or been in a relationship where the following occur: No concerns reported THRIVE Score: 0 AUDIT C Alcohol Use Questionnaire (AUDIT-C) 1. How often do you have a drink containing alcohol?: Never 3. How often do you have six or more drinks on one occasion?: Never Total Score: 0 Score Reviewed/Action Taken: No RUSLAN-7 AMB Questionnaire RUSLAN-7 Date RUSLAN - 7 assessed: 12/19/24 Feeling nervous, anxious, or on edge: 0 = Not at all Not being able to stop or control worryin = Not at all Worrying too much about different things: 0 = Not at all Trouble relaxin = Not at all Being so restless that it is hard to sit still: 0 = Not at all Becoming easily annoyed or irritable: 0 = Not at all Feeling afraid as if something awful might happen: 0 = Not at all Total RUSLAN-7 score (0-4 normal; 5-9 mild; 10-14 moderate; 15-21 severe): 0 Source: Developed by Drs. Jose Torrez, Roslyn Beckham, Giovanni Barraza and colleagues, with an educational suraj from [employer]. RUSLAN-7 Assessment Billing RUSLAN-7 Assessment Tool: RUSLAN-7 Assessment 28788 Review of Systems Const Details: - Cardiovascular: Reports dyspnea on exertion. Denies chest pain or peripheral edema. - Respiratory: Denies cough or wheezing. - Gastrointestinal: Reports gastrointestinal upset with metformin, managed with extended-release formulation. - Neurological: Denies headaches or dizziness. All systems reviewed & are unremarkable except as noted in HPI and below Physical exam (Primary Care) Vital Signs: Last Vital Signs Temp 97.3 F 12/19/24 13:02 Pulse 87 12/19/24 13:02 Resp 16 12/19/24 13:02 BP 110/62 12/19/24 13:02 Pulse Ox 97 12/19/24 13:02 Oxygen Delivery Method Room Air 12/19/24 13:02 Care Plan Goal for BP management: Blood pressure at goal BMI result Body Mass Index 31.7 BMI Assessment/Plan discussion: High BMI High, discussed plan: lifestyle, weight reduction, dietary, physical activity and alcohol moderation Tobacco/Smoking Status: Tobacco use Status Tobacco use date assessed 12/19/24 12/19/24 13:05 Patient Tobacco Use Status Former Tobacco user 12/19/24 13:22 PHQ-9: PHQ-9 Score PHQ-9: Total score 0 12/19/24 13:29 Depression Screening Interpretation: Negative Thrive Assessment: Date of Thrive Assessment Date Thrive assessed 12/19/24 12/19/24 13:05 Currently or been in a relationship where the following occur: No concerns reported Const Other: Appearance: Alert. Oriented X3. No acute distress. Head: Normal external exam. Normocephalic. Atraumatic. Eyes: Pupils are equal, round, and reactive to light. Extraocular movements intact. Conjunctiva and sclera normal. Eyelids normal. Ears: External auditory canal normal. Tympanic membranes normal. Throat: Pharynx normal. Uvula midline. Moist mucous membranes. Neck: Normal inspection. Neck supple. Full range of motion. No adenopathy. Thyroid Normal. No meningeal signs. No neck mass noted. Cardiovascular: Normal heart rate and rhythm. Heart sound normal. No murmurs noted. Pulses normal throughout. Respiratory: No respiratory distress. Painless inspiration. Breath sounds normal. No wheezes/rales/rhonchi noted. Chest nontender. No accessory muscle usage noted or decreased air movement noted. Abdomen: Soft and nontender. Bowel sounds normal in all 4 quadrants. No distention noted. No organomegaly noted. No visible injury noted. Back: No costovertebral angle tenderness. Full range of motion noted. Skin: Skin warm and dry. Normal skin color. Normal skin turgor. No rashes/lesions/lacerations noted. Extremities: No lower extremity edema. Extremities exhibit normal range of motion. Extremities nontender. Neuro: Oriented X 3. No motor deficit. No sensory deficit. Reflexes normal. Results Reviewed Results Reviewed: - Labs: Hemoglobin A1c 7.7%, fasting glucose 179 mg/dL, LDL cholesterol controlled, HDL cholesterol slightly low, PSA elevated. Coding Level of Care Code Est Pt Level 4 (77260) Complex EM visit Add On G2211 Diagnoses Coronary artery disease I25.10 Diabetes type 2 E11.9 Mild hypercholesterolemia E78.00 Elevated PSA R97.20 Obesity (BMI 30.0-34.9) E66.811 Additional Codes RUSLAN-7 Assessment Billing - RUSLAN-7 Assessment Tool: RUSLAN-7 Assessment 65752 ([id number]) PHQ-9 - 78665 - PHQ-9 Billing: Yes ([id number]) Assessment & Plan Assessment & Plan (1) Coronary artery disease: Code(s): I25.10 - Atherosclerotic heart disease of [place] coronary artery without angina pectoris Category: Medical Plan: The patient continues to manage coronary artery disease post-myocardial infarction with medications including atorvastatin and aspirin. He reports stable symptoms with no new or worsening dyspnea or edema. (2) Diabetes type 2: Code(s): E11.9 - Type 2 diabetes mellitus without complications Category: Medical Plan: The patient's diabetes management includes Trulicity, metformin, and glipizide, with recent adjustments to Trulicity dosage to better control elevated A1c levels. Follow-up is planned in three months to reassess glycemic control. (3) Mild hypercholesterolemia: Code(s): E78.00 - Pure hypercholesterolemia, unspecified Category: Medical Plan: Hyperlipidemia is managed with atorvastatin and Zetia, with recent labs showing controlled LDL levels. (4) Elevated PSA: Code(s): R97.20 - Elevated prostate specific antigen [PSA] Category: Medical Plan: The patient is advised to follow up with urology for elevated PSA levels, with a referral already placed. (5) Obesity (BMI 30.0-34.9): Code(s): E66.811 - Obesity, class 1 Category: Medical Plan: Patient to improve diet and exercise regimen. Condition is chronic and stable will continue to monitor. Plan Plan Patient was informed and verbally consented to the use of an ambient scribe for clinic note documentation during this visit. 1. Coronary Artery Disease The patient continues to manage coronary artery disease post-myocardial infarction with medications including atorvastatin and aspirin. He reports stable symptoms with no new or worsening dyspnea or edema. 2. Type 2 Diabetes Mellitus The patient's diabetes management includes Trulicity, metformin, and glipizide, with recent adjustments to Trulicity dosage to better control elevated A1c levels. Follow-up is planned in three months to reassess glycemic control. 3. Hyperlipidemia Hyperlipidemia is managed with atorvastatin and Zetia, with recent labs showing controlled LDL levels. 4. Elevated Prostate-Specific Antigen (Psa) The patient is advised to follow up with urology for elevated PSA levels, with a referral already placed. During the visit, we discussed the management of the patient's type 2 diabetes, including the adjustment of Trulicity dosage to improve glycemic control. We also reviewed the need for follow-up with urology due to elevated PSA levels and ensured that a referral was placed. The patient was advised to return in three months for reassessment of diabetes management. Medications: Changed From blood sugar diagnostic (FreeStyle Test strips) As directed 100 ea 0RF E11.9 - Type 2 diabetes mellitus without complications To blood sugar diagnostic (FreeStyle Test strips) check glucose tid with meals 100 ea 3RF E11.9 - Type 2 diabetes mellitus without complications From dulaglutide (Trulicity) 1.5 mg (0.5 mL) subcut QWEEK 90 days 6.5 mL 1RF To dulaglutide 3 mg (0.5 mL) subcut QWEEK 6.5 mL 1RF 90 days From lancets (FreeStyle Lancets) As directed 100 ea 0RF E11.9 - Type 2 diabetes mellitus without complications To lancets (FreeStyle Lancets) check glucose tid with meals 100 ea 3RF E11.9 - Type 2 diabetes mellitus without complications Patient Instructions: - Continue current medications as prescribed. - Follow up with urology regarding elevated PSA levels. - Return for a follow-up visit in three months to reassess diabetes management.
[2024-12-19 13:02] VITALS: BP 110/62; PULSE 87; RESP 16; TEMP 36.3; O2SAT 97; BMI 31.7
== END 2024-12-19 13:47 | disposition home or self-care (01) ==
LOC: HO.HMCSH 13:05
PROVIDERS: PCP Internal Medicine; Visit Provider Physician Assistant Medical
DX: I25.10 Atherosclerotic heart disease of native coronary artery without angina pectoris (principal); E11.9 Type 2 diabetes mellitus without complications; E78.00 Pure hypercholesterolemia, unspecified; R97.20 Elevated prostate specific antigen [PSA]; E66.811 Obesity, class 1

== ENCOUNTER → 2024-12-19 13:05 | Outpatient (BNVA) | payer MEDICARE, SELFPAY | PROVIDERS: PCP Internal Medicine; Visit Provider Physician Assistant Medical | DX: I25.10 Atherosclerotic heart disease of native coronary artery without angina pectoris (principal); I25.2 Old myocardial infarction; R06.00 Dyspnea, unspecified; E11.9 Type 2 diabetes mellitus without complications; E78.00 Pure hypercholesterolemia, unspecified; R97.20 Elevated prostate specific antigen [PSA]; E66.811 Obesity, class 1; Z68.31 Body mass index [BMI] 31.0-31.9, adult; Z79.84 Long term (current) use of oral hypoglycemic drugs; Z79.899 Other long term (current) drug therapy | CPT/HCPCS: 96127; 99212 ==

== ENCOUNTER 2025-03-14 13:32 | Outpatient (AMB) | payer MEDICARE, SELFPAY ==
[2025-03-14 13:35] VITALS: BP 108/53; PULSE 88; RESP 14; TEMP 36.4; O2SAT 96; BMI 30.5
--- NOTE | 2025-03-14 13:35 | A.OFFPC_ITS ---
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 Accompanied by: Self / Same As Patient Allergies No Known Allergies (No Known Allergies*) Allergy (Verified 03/14/25 14:19) Medication List - Last Reconciled 03/14/25 by Sally Smith PA-C aspirin (Adult Aspirin Regimen) 81 mg PO DAILY atorvastatin 80 mg PO DAILY blood sugar diagnostic (FreeStyle Test strips) check glucose tid with meals blood sugar diagnostic (FreeStyle Test strips) As directed cholecalciferol (vitamin D3) 25 mcg PO DAILY dapagliflozin propanediol (Farxiga) 10 mg PO DAILY dulaglutide 4.5 mg (0.5 mL) subcut QWEEK 3 months ezetimibe 10 mg PO DAILY glipizide ER 5 mg PO QAM lancets (FreeStyle Lancets) check glucose tid with meals lisinopril 5 mg PO DAILY lorazepam (Ativan) 0.5 mg PO BEDTIME PRN metformin ER 750 mg PO DAILY metoprolol tartrate 50 mg PO BID 90 days Tobacco use date assessed: 12/19/24 Dental Screening Dental Screen Date: 12/19/24 HPI HPI Comments History of Present Illness Details History of Present Illness The patient is a 74-year-old male presenting for follow-up of type 2 diabetes mellitus. His HbA1c has improved to 7.1% from 7.7% in November 2024, which is attributed to an increase in his Trulicity dose to 3 mg weekly. He denies any abnormal side effects from the medication. The patient has also experienced weight loss, dropping from 189 lbs at his last visit to 182 lbs today, a total of 7 lbs. He notes this weight loss is not from exercise and expresses a desire to weigh below 180 lbs. The patient reports that his recently , which has been a source of significant stress. He experiences occasional difficulty sleeping and denies suicidal ideation or hallucinations. Social History - Family Status: The patient was recentl y . - Support System: He has three children. - Stressors: He reports stress from phoebe ging his late 's personal papers. - Exercise: The patient states his recen t weight loss is not due to exercise. [facility] Medical History (Updated 03/14/25 @ 14:21 by Sally Smith PA-C) Obesity with body mass index (BMI) of 30.0 to 39.9 Bereavement Type 2 diabetes mellitus with hemoglobin A1c goal of less than 7.0% Obesity (BMI 30.0-34.9) Elevated PSA Diabetes type 2 Mild hypercholesterolemia History of myocardial infarction Coronary artery disease Surgical History History of colonoscopy (~02/03/19) Family History Father Emphysema lung Mother High blood pressure Social History Housing: House Alcohol intake: current Alcohol intake frequency: does not drink Patient Tobacco Use Status: Former Tobacco user service: No Current occupational status: retired Cognitive needs: No Hearing needs: No Vision needs: Yes (rx glasses) Questionnaire PHQ-9 Over the last 2 weeks, how often have you been bothered by any of the following problems? 1. Little interest or pleasure in doing things: not at all 2. Feeling down, depressed, or hopeless: not at all 3. Trouble falling or staying asleep, or sleeping too much: not at all 4. Feeling tired or having little energy: not at all 5. Poor appetite or overeating: not at all 6. Feeling bad about yourself - or that you are a failure or have let yourself or your family down: not at all 7. Trouble concentrating on things, such as reading the newspaper or watching television: not at all 8. Moving or speaking so slowly that other people could have noticed. Or the opposite - being so fidgety or restless that you have been moving around a lot more than usual: not at all 9. Thoughts that you would be better off or of hurting yourself in some way: not at all Total score: 0 Depression Screening Interpretation: Negative Depression Screening Done: Yes 89753 - PHQ-9 Billing: Yes Source: Developed by Drs. Jose Torrez, Roslyn Beckham, Giovanni Barraza and colleagues, with an educational suraj from [employer]. Thrive Questionnaire Date Thrive assessed: 12/19/24 I am a: Patient What is your living situation today?: I have a steady place to live Within the past 12 months, did the food you bought not last and you didn't have the money to get more?: Never true Within the past 12 months, did you worry whether your food would run out before you got money to buy more?: Never true Do you have trouble paying for medicines?: No Do you have trouble getting transportation to medical appointments?: No Do you have trouble paying your heating and electricity bill?: No Do you have trouble taking care of your child, family member or friend?: No Do you have trouble with day-to-day activities such as bathing, preparing meals, shopping, managing finances, etc.?: No Are you currently unemployed and looking for a job?: No Are you interested in more education?: No Please select the resources that you would like help with: None Currently or been in a relationship where the following occur: No concerns reported THRIVE Score: 0 AUDIT C Alcohol Use Questionnaire (AUDIT-C) 1. How often do you have a drink containing alcohol?: Never 3. How often do you have six or more drinks on one occasion?: Never Total Score: 0 Score Reviewed/Action Taken: No RUSLAN-7 AMB Questionnaire RUSLAN-7 Date RUSLAN - 7 assessed: 12/19/24 Feeling nervous, anxious, or on edge: 0 = Not at all Not being able to stop or control worryin = Not at all Worrying too much about different things: 0 = Not at all Trouble relaxin = Not at all Being so restless that it is hard to sit still: 0 = Not at all Becoming easily annoyed or irritable: 0 = Not at all Feeling afraid as if something awful might happen: 0 = Not at all Total RUSLAN-7 score (0-4 normal; 5-9 mild; 10-14 moderate; 15-21 severe): 0 Source: Developed by Drs. Jose Torrez, Roslyn Beckham, Giovanni Barraza and colleagues, with an educational suraj from [employer]. RUSLAN-7 Assessment Billing RUSLAN-7 Assessment Tool: RUSLAN-7 Assessment 75820 Review of Systems Narrative Review of Systems - Constitutional: Reports weight loss of 7 pounds. - Psychiatric: Reports occasional insomnia and stress following the recent of his . - Denies thoughts of self-harm or hallucinations. - Endocrine: Denies side effects from Trulicity. Const All systems reviewed & are unremarkable except as noted in HPI and below Physical exam (Primary Care) Vital Signs: Last Vital Signs Temp 97.6 F 03/14/25 13:35 Pulse 88 03/14/25 13:35 Resp 14 03/14/25 13:35 BP 108/53 L 03/14/25 13:35 Pulse Ox 96 03/14/25 13:35 Oxygen Delivery Method Room Air 03/14/25 13:35 Care Plan Goal for BP management: <140/90 at Goal BMI result Body Mass Index 30.5 BMI Assessment/Plan discussion: High BMI High, discussed plan: lifestyle, weight reduction, dietary, physical activity, alcohol moderation and other Tobacco/Smoking Status: Tobacco use Status Tobacco use date assessed 12/19/24 03/14/25 13:37 Patient Tobacco Use Status Former Tobacco user 03/14/25 13:37 PHQ-9: PHQ-9 Score PHQ-9: Total score 0 03/14/25 13:49 Depression Screening Interpretation: Negative Thrive Assessment: Date of Thrive Assessment Date Thrive assessed 12/19/24 03/14/25 13:37 Currently or been in a relationship where the following occur: No concerns reported Narrative Physical Exam Appearance: Alert. Oriented X3. No acute distress. Head: Normal external exam. Normocephalic. Atraumatic. Eyes: Pupils are equal, round, and reactive to light. Extraocular movements intact. Conjunctiva and sclera normal. Eyelids normal. Ears: External auditory canal normal. Tympanic membranes normal. Throat: Pharynx normal. Uvula midline. Moist mucous membranes. Neck: Normal inspection. Neck supple. Full range of motion. No adenopathy. Thyroid Normal. No meningeal signs. No neck mass noted. Cardiovascular: Normal heart rate and rhythm. Heart sound normal. No murmurs noted. Pulses normal throughout. Respiratory: No respiratory distress. Painless inspiration. Breath sounds normal. No wheezes/rales/rhonchi noted. Chest nontender. No accessory muscle usage noted or decreased air movement noted. Abdomen: Soft and nontender. Bowel sounds normal in all 4 quadrants. No distention noted. No organomegaly noted. No visible injury noted. Back: No costovertebral angle tenderness. Full range of motion noted. Skin: Skin warm and dry. Normal skin color. Normal skin turgor. No rashes/lesions/lacerations noted. Extremities: No lower extremity edema. Extremities exhibit normal range of motion. Extremities nontender. Neuro: Oriented X 3. No motor deficit. No sensory deficit. Reflexes normal. Office Procedures Flu Questionnaire Does the patient have a severe egg allergy?: No Does the patient have severe life threatening allergies?: No Does the patient have a fever or illness today?: No Has the patient ever had Guillain-[place] Syndrome?: No Has the patient ever had any past reaction to a flu shot?: No Immunizations Fluarix [id number] (PF) 45 mcg (15 mcg x 3)/0.5 mL IM syringe Performing Provider: Sally Smith PA-C [facility] Administered by: DA Brunner on 03/14/25 13:50 Dose Route Admin Location Dispensed Lot Number Expiration Date NDC Business Process Coordinator 0.5 mL IM Left Deltoid 0.5 mL [id number] 10/23/25 [id number] [employer] VIS Given Date VIS Provided VIS Publication Date 03/14/25 Single Vaccine 24 Eligibility Eligibility Date Funding Source Not [facility] Eligible 03/14/25 Private Results Reviewed Results Reviewed: Results - Labs: HbA1c is 7.1%, improved from 7.7% in November. Coding Level of Care Code Est Pt Level 4 (72852) Complex EM visit Add On G2211 Diagnoses Type 2 diabetes mellitus with hemoglobin A1c goal of less than 7.0% E11.9 Bereavement Z63.4 Obesity with body mass index (BMI) of 30.0 to 39.9 E66.9 Additional Codes RUSLAN-7 Assessment Billing - RUSLAN-7 Assessment Tool: RUSLAN-7 Assessment 56568 ([id number]) PHQ-9 - 54004 - PHQ-9 Billing: Yes ([id number]) Assessment & Plan Assessment & Plan (1) Type 2 diabetes mellitus with hemoglobin A1c goal of less than 7.0%: Code(s): E11.9 - Type 2 diabetes mellitus without complications Category: Medical Plan: The patient's HbA1c has shown improvement, decreasing from 7.7% to 7.1% on Trulicity 3 mg weekly. To achieve further glycemic control and support his weight loss goal, the plan is to increase the Trulicity dose to 4.5 mg weekly. The patient agreed with this medication adjustment. A follow-up is scheduled in three months, after June 18, for a repeat HbA1c. Due to a scheduling error, the current A1c lab will be held and submitted in five days to ensure insurance coverage. (2) Bereavement: Code(s): Z63.4 - Disappearance and of family member Category: Social Hx Plan: The patient is experiencing grief and stress following the recent of his , which has resulted in occasional insomnia. Ativan 0.5 mg, 30 tablets, will be prescribed to be taken as needed at bedtime for anxiety and to aid sleep. The option of grief counseling with a therapist was offered, and while the patient is not ready at this time, he will call if he changes his mind. The patient was counseled to be gentle with himself during this time and to spend time with his supportive family. (3) Obesity with body mass index (BMI) of 30.0 to 39.9: Code(s): E66.9 - Obesity, unspecified Category: Medical Plan: The patient has successfully lost 7 lbs since his last visit. He has a personal goal to get below 180 lbs. The increase in Trulicity to 4.5 mg weekly is expected to assist with further weight loss. Plan Plan Patient was informed and verbally consented to the use of an ambient scribe for clinic note documentation during this visit. 1. Type 2 Diabetes Mellitus The patient's HbA1c has shown improvement, decreasing from 7.7% to 7.1% on Trulicity 3 mg weekly. To achieve further glycemic control and support his weight loss goal, the plan is to increase the Trulicity dose to 4.5 mg weekly. The patient agreed with this medication adjustment. A follow-up is scheduled in three months, after June 18, for a repeat HbA1c. 2. Bereavement The patient is experiencing grief and stress following the recent of his , which has resulted in occasional insomnia. Ativan 0.5 mg, 30 tablets, will be prescribed to be taken as needed at bedtime for anxiety and to aid sleep. The option of grief counseling with a therapist was offered, and while the patient is not ready at this time, he will call if he changes his mind. The patient was counseled to be gentle with himself during this time and to spend time with his supportive family. 3. Overweight The patient has successfully lost 7 lbs since his last visit. He has a personal goal to get below 180 lbs. The increase in Trulicity to 4.5 mg weekly is expected to assist with further weight loss. Discussion Notes I discussed with the patient his improved HbA1c of 7.1%, down from 7.7%. We agreed to increase his weekly Trulicity dose to 4.5 mg to further improve his glycemic control and aid in his weight loss goals, and he consented to this change. We also addressed his recent bereavement and the associated stress and insomnia. I prescribed Ativan 0.5 mg to be taken as needed at bedtime, explaining its purpose and that he can contact me if the dose needs adjustment. I offered a referral for grief counseling, which he declined for now but will consider in the future. Follow-up is planned in three months to re-evaluate his HbA1c. Orders: Orders Influenza [id number] Immunization Today Z23 - Encounter for immunization Medications: New lorazepam (Ativan) 0.5 mg PO BEDTIME PRN 30 tabs 0RF anxiety Changed From dulaglutide 3 mg (0.5 mL) subcut QWEEK 6.5 mL 1RF 90 days To dulaglutide 4.5 mg (0.5 mL) subcut QWEEK 6.5 mL 3RF 3 months Patient Instructions: Patient Instructions - Increase your Trulicity dose to 4.5 mg once a week. - Take Ativan 0.5 mg at bedtime as needed if you feel anxious or cannot sleep. - Contact the office if you feel the Ativan is not helping or if you need a refill. - Schedule a follow-up appointment in 3 months, for after June 18, to recheck your A1c. - Please let us know if you decide you would like to speak with a grief couns elor. - Take your time going through your 's belongings and be sure to spend time with your family for support.
== END 2025-03-14 14:13 | disposition home or self-care (01) ==
LOC: HO.HMCSH 13:32
PROVIDERS: PCP Physician Assistant Medical; Visit Provider Physician Assistant Medical
DX: E11.9 Type 2 diabetes mellitus without complications (principal); Z63.4 Disappearance and death of family member; E66.9 Obesity, unspecified; Z23 Encounter for immunization

== ENCOUNTER → 2025-03-14 13:32 | Outpatient (BNVA) | payer MEDICARE, SELFPAY | PROVIDERS: PCP Physician Assistant Medical; Visit Provider Physician Assistant Medical | DX: Z23 Encounter for immunization (principal); E11.9 Type 2 diabetes mellitus without complications; E66.9 Obesity, unspecified; Z63.4 Disappearance and death of family member; Z68.30 Body mass index [BMI] 30.0-30.9, adult; Z79.85 Long-term (current) use of injectable non-insulin antidiabetic drugs | CPT/HCPCS: 90471; 90656; 96127; 99212 ==

== ENCOUNTER → 2025-03-19 13:09 | Outpatient (BNV) | payer MEDICARE, SELFPAY | PROVIDERS: PCP Physician Assistant Medical; Visit Provider Physician Assistant Medical | DX: E11.9 Type 2 diabetes mellitus without complications (principal) | CPT/HCPCS: 83036 ==